=== PATIENT | female | born 1955 ===

== ENCOUNTER → 2023-10-12 | Day surgery (SDC) | payer OTHER ==
[~2023-10-12] MED LIST: CEFAZOLIN SODIUM 1,000 MG VIAL IV ONE; CEFAZOLIN SODIUM 1,000 MG VIAL ONE; MACROBID 100 M100 MG PO
== END | disposition home or self-care (01) ==
LOC: ADM 10-08 11:00 → CIR.AMB 05:40
PROVIDERS: ATTEND Obstetrics & Gynecology Gynecology
DX: N39.3 Stress incontinence (female) (male) (principal)